=== PATIENT | female | born 1995 | race African-American/Black ===

== ENCOUNTER 2017-10-12 16:44 | Emergency (ER) | payer OTHER ==
[~2017-10-12] VITALS: Ht 175.3 cm; Wt 113.0 kg
[2017-10-12 16:52] VITALS: BP 142/95; PULSE 91; RESP 16; TEMP 98.4; O2SAT 100
[2017-10-12 17:39] LABS: BILIRUBIN, URINE NEG (NEG); BLOOD, URINE NEG (NEG); CALCIUM OXALATE CRYSTALS,URINE FEW /hpf; GLUCOSE,URINE NEG (NEG); KETONE, URINE NEG (NEG); MUCUS URINE MOD /lpf (OCC); NITRITE,URINE NEG (NEG); SQUAMOUS EPITHELIAL CELL URINE 4 /hpf (0-5); URINE COLOR YELLOW (YELLW/STRAW); URINE LEUKOCYTE ESTERASE NEG (NEG)
--- NOTE | 2017-10-12 18:30 | PD ---
HPI Chief Complaint: [employer] Problem/Complaint Time Seen by Provider: 18:10 Travel History International Travel<30 days: No Contact w/Intl Traveler<30days: No Traveled to known affect area: No History of Present Illness HPI Patient is a 22-year-old female presents emergency department for evaluation of fatigue. She states she has been having some body aches and just not feeling herself for the past few weeks. She states she has not had a period since July. On review of systems she also endorses polyuria and polydipsia, she denies any chest pain shortness of breath abdominal pain nausea vomiting diarrhea constipation. Patient states symptoms are mild, associated signs symptoms, duration, context as above PFSH Past Medical History Diminished Hearing: No Hypertension: Yes Immunizations Current: Yes Tetanus Vaccination: < 5 Years Influenza Vaccination: No ?: Not LMP: 07/2017 : 1 Para: 1 Past Surgical History Other Surgery: Yes (LIPOSUCTION) Social History Alcohol Use: No Tobacco Use: No (2 cigarettes a day) Substance Use: No Allergies-Medications (Allergen,Severity, Reaction): Coded Allergies: No Known Allergies (Unverified , 10/12/17) Reported Meds & Prescriptions Reported Meds & Active Scripts Active No Active Prescriptions or Reported Medications Review of Systems Except as stated in HPI: all other systems reviewed are Neg Physical Exam Narrative GENERAL: Well-nourished, well-developed patient. Morbidly obese SKIN: Focused skin assessment warm/dry. No rash no wound seen on her person peer HEAD: Normocephalic. Atraumatic EYES: No scleral icterus. No injection or drainage. NECK: Supple, trachea midline. No JVD or lymphadenopathy. CARDIOVASCULAR: Regular rate and rhythm without murmurs, gallops, or rubs. RESPIRATORY: Breath sounds equal bilaterally. No accessory muscle use. GASTROINTESTINAL: Abdomen soft, non-tender, nondistended. MUSCULOSKELETAL: No cyanosis, or edema. BACK: Nontender without obvious deformity. No CVA tenderness. Data Data Last Documented VS Vital Signs Date Time Temp Pulse Resp B/P (MAP) Pulse Ox O2 Delivery O2 Flow Rate FiO2 10/12/17 16:52 98.4 91 16 142/95 (111) 100 Orders Orders Urinalysis - C+S If Indicated (10/12/17 16:55) Ed Urine Pregnancytest Poc (10/12/17 16:55) Bedside Glucose [email or web address] (10/12/17 18:29) Ed Discharge Order (10/12/17 18:51) Labs Laboratory Tests Test 10/12/17 17:10 Urine Color YELLOW Urine Turbidity CLEAR Urine pH 6.0 Urine Specific [place] 1.023 Urine Protein TRACE mg/dL Urine Glucose (UA) NEG mg/dL Urine Ketones NEG mg/dL Urine Occult Blood NEG Urine Nitrite NEG Urine Bilirubin NEG Urine Urobilinogen 2.0 MG/DL Urine Leukocyte Esterase NEG Urine WBC 2 /hpf Urine Squamous Epithelial Cells 4 /hpf Urine Calcium Oxalate Crystals FEW /hpf Urine Mucus MOD /lpf Microscopic Urinalysis Comment CULT NOT INDICATED MDM Medical Decision Making Medical Screen Exam Complete: Yes Emergency Medical Condition: Yes Differential Diagnosis Diabetes, , urinary tract infection, anemia unlikely as the patient has no conjunctival pallor. Narrative Course Patient room to the emergency department, she appears well in obvious distress, blood sugar checked and is within normal limits. Care physician for further workup of her chronic complaint. She stable for discharge Diagnosis Primary Impression: Fatigue Referrals: [facility] Patient Instructions: Fatigue (DC), General Instructions Additional Instructions: Follow-up with your primary care physician of the [facility] for a checkup as soon as possible. Your always welcome to return to the emergency department any time you think you have medical emergency. Scripts No Active Prescriptions or Reported Meds Disposition: 01 DISCHARGE HOME Condition: Stable Hal Edwards MD Oct 12, 2017 18:30
== END 2017-10-12 19:23 | disposition home or self-care (01) ==
LOC: NEPD 16:44
DX: R53.83 Other fatigue (principal)
CPT/HCPCS: 81001; 84703; 99283